=== PATIENT | male | born 1980 | race Caucasian/White ===

== ENCOUNTER 2017-03-11 20:15 | Emergency (ER) | payer OTHER ==
--- NOTE | 2017-03-11 23:07 | ED ORDER SUMMARY ---
..... Patient: ODALYS GONZALEZ OrderSheet [facility] VisitID: [id number] [place] [address] 36y, M Registration Date/Time: 03/11/2017 ORDER SHEET Weight: 65.3 kg (stated) Allergies: None GENERAL ORDERS: CBC w Diff Urgent (21:36 03/11/2017 Cande SWARTZ) (Ack 21:46 AMcQuoid ER Tech1) (21:46 AMcQuoid ER Tech1) CMP Urgent (21:36 03/11/2017 Cande SWARTZ) (Ack 21:46 AMcQuoid ER Tech1) (21:46 AMcQuoid ER Tech1) Lipase Urgent (:03/11/2017 Cande SWARTZ) (Ack 21:46 AMcQuoid ER Tech1) (21:46 AMcQuoid ER Tech1) ABG (G) Urgent (21:03/11/2017 Cande SWARTZ) (Ack 21:46 AMcQuoid ER Tech1) (23:19 LAbe R.N.) MEDICATION ORDERS: IV FLUIDS: Zofran IV 4 mg (NOW) (:36 03/11/2017 Cande SWARTZ) (Ack 21:41 LAbe R.N.) (21:49 LAbe R.N.) IV NS : initial bolus 1000 mL (1000 mL/hr), then none - for X1 (NOW); Routine (21:36 03/11/2017 Cande SWARTZ) (Ack 21:41 LAbe R.N.) (21:49 LAbe R.N.) Ativan IV 1 mg (NOW) (22:03 03/11/2017 Cande SWARTZ) (Ack 22:06 LAbe R.N.) ORDER SHEET NOTES: [Electronically signed by Tasia Torre R.N. (23:20 03/11/2017)] [Electronically signed by Braxton Ambrose MD (20:46 03/12/2017)] [Electronically locked/signed by Tasia Torre R.N. (23:20 03/11/2017)]
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
--- NOTE | 2017-03-11 23:07 | ED ORDER SUMMARY ---
..... Patient: ODALYS GONZALEZ OrderSheet [facility] VisitID: [id number] [place] [address] 36y, M Registration Date/Time: 03/11/2017 ORDER SHEET Weight: 65.3 kg (stated) Allergies: None GENERAL ORDERS: CBC w Diff Urgent (21:36 03/11/2017 Cande SWARTZ) (Ack 21:46 AMcQuoid ER Tech1) (21:46 AMcQuoid ER Tech1) CMP Urgent (21:36 03/11/2017 Cande SWARTZ) (Ack 21:46 AMcQuoid ER Tech1) (21:46 AMcQuoid ER Tech1) Lipase Urgent (:03/11/2017 Cande SWARTZ) (Ack 21:46 AMcQuoid ER Tech1) (21:46 AMcQuoid ER Tech1) ABG (G) Urgent (21:03/11/2017 Cande SWARTZ) (Ack 21:46 AMcQuoid ER Tech1) (23:19 LAbe R.N.) MEDICATION ORDERS: IV FLUIDS: Zofran IV 4 mg (NOW) (:36 03/11/2017 Cande SWARTZ) (Ack 21:41 LAbe R.N.) (21:49 LAbe R.N.) IV NS : initial bolus 1000 mL (1000 mL/hr), then none - for X1 (NOW); Routine (21:36 03/11/2017 Cande SWARTZ) (Ack 21:41 LAbe R.N.) (21:49 LAbe R.N.) Ativan IV 1 mg (NOW) (22:03 03/11/2017 Cande SWARTZ) (Ack 22:06 LAbe R.N.) ORDER SHEET NOTES: [Electronically signed by Tasia Torre R.N. (23:20 03/11/2017)] [Electronically signed by Braxton Ambrose MD (20:46 03/12/2017)] [Electronically locked/signed by Tasia Torre R.N. (23:20 03/11/2017)]
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
--- NOTE | 2017-03-12 20:46 | ED MED RECONCILIATION SUMMARY ---
Patient: ODALYS GONZALEZ Medication Reconciliation Report [facility] VisitID: [id number] [address] [place] [address] 36y, M Registration Date/Time: 03/11/2017 Weight: 65.3 kg Height/Length: 69 in. BMI: 21.3 ALLERGIES: None The patient's Home Medications are listed below: NONE. The source(s) of the original Home Medication information: patient The following Medications were given to the patient in the Emergency Department: IV NS IV Fluids bolus 0, then 1000 mL/hr, administered: 03/11/2017 9:49:00 PM Zofran [IVP] IVP 4 mg, administered: 03/11/2017 9:49:00 PM The following Medications were prescribed to the patient: None.
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
--- NOTE | 2017-03-12 20:46 | ED MAR SUMMARY ---
..... Medication Administration Record [facility] [address] [place] [address] Patient: ODALYS GONZALEZ Visit ID: [id number] 36y, M Weight: 65.3 kg Height/Length: 69 in BMI: 21.3 ALLERGIES: None Given 21:49 03/11/2017 Tasia Torre R.N. Medication Administered: ZOFRAN [IVP] (ONDANSETRON HCL), Dose: 4 mg IVP, Site: #1 right AC. Medication Ordered: Zofran IV 4 mg (NOW). Start 21:49 03/11/2017 Tasia Torre R.N., Stop 23:04 03/11/2017 Tasia Torre R.N. Medication Administered: IV NS (SALINE), Dose: IV Fluids, Rate: 1000 mL/hr, Dispensed: 1000 mL bag, Site: #1 right AC. Medication Ordered: IV NS : initial bolus 1000 mL (1000 mL/hr), then none - for X1 (NOW); Routine.
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
--- NOTE | 2017-03-12 20:46 | ED MAR SUMMARY ---
..... Medication Administration Record [facility] [address] [place] [address] Patient: ODALYS GONZALEZ Visit ID: [id number] 36y, M Weight: 65.3 kg Height/Length: 69 in BMI: 21.3 ALLERGIES: None Given 21:49 03/11/2017 Tasia Torre R.N. Medication Administered: ZOFRAN [IVP] (ONDANSETRON HCL), Dose: 4 mg IVP, Site: #1 right AC. Medication Ordered: Zofran IV 4 mg (NOW). Start 21:49 03/11/2017 Tasia Torre R.N., Stop 23:04 03/11/2017 Tasia Torre R.N. Medication Administered: IV NS (SALINE), Dose: IV Fluids, Rate: 1000 mL/hr, Dispensed: 1000 mL bag, Site: #1 right AC. Medication Ordered: IV NS : initial bolus 1000 mL (1000 mL/hr), then none - for X1 (NOW); Routine.
--- NOTE | 2017-03-12 20:46 | ED MED RECONCILIATION SUMMARY ---
Patient: ODALYS GONZALEZ Medication Reconciliation Report [facility] VisitID: [id number] [address] [place] [address] 36y, M Registration Date/Time: 03/11/2017 Weight: 65.3 kg Height/Length: 69 in. BMI: 21.3 ALLERGIES: None The patient's Home Medications are listed below: NONE. The source(s) of the original Home Medication information: patient The following Medications were given to the patient in the Emergency Department: IV NS IV Fluids bolus 0, then 1000 mL/hr, administered: 03/11/2017 9:49:00 PM Zofran [IVP] IVP 4 mg, administered: 03/11/2017 9:49:00 PM The following Medications were prescribed to the patient: None.
== END 2017-03-11 23:15 | disposition home or self-care (01) ==
LOC: ED SRH 20:15
DX: Z57.5 Occupational exposure to toxic agents in other industries (principal); R06.4 Hyperventilation; T75.89XA Other specified effects of external causes, initial encounter; Y92.89 Other specified places as the place of occurrence of the external cause
CPT/HCPCS: 90100; 92235; 95059